=== PATIENT | female | born 1970 | race Caucasian/White ===

== ENCOUNTER → 2024-12-31 | Outpatient (CLI) | payer BC ==
--- NOTE | 2024-12-31 13:47 | XR ---
EXAMINATION TYPE: XR cervical spine comp DATE OF EXAM: 12/31/2024 1:26 PM INDICATION: Patient age:Female; 54 years old; Reason for study: M54.2 ACUTE NECK PAIN; PHH, pain COMPARISON: None TECHNIQUE: The cervical spine was imaged in frontal, lateral, bilateral oblique, swimmer's, and odont oid projections. FINDINGS: The osseous structures show normal alignment without evidence of an acute fracture. The intervertebra l disk spaces are preserved. Pedicles are intact. Soft tissues are within normal limits. The odonto id appears intact. IMPRESSION: 1. No fracture or dislocation. 2. No significant degenerative disc disease. [facility], , 12/31/2024 1:45 PM
== END | disposition home or self-care (01) ==
LOC: RADXRMAIN 13:05
PROVIDERS: ATTEND Internal Medicine
DX: M54.2 Cervicalgia (principal)
CPT/HCPCS: 72050